=== PATIENT | male | born 1970 | race Two or more races ===

== ENCOUNTER 2017-09-04 22:25 | Inpatient (IN) | payer OTHER ==
[~2017-09-04] VITALS: Ht 172.7 cm; Wt 84.0 kg
[2017-09-04] MEDS ORDERED: ONDANSETRON ODT 4 MG PO ONE (23:00)
[2017-09-04] MEDS ORDERED: MECLIZINE CHEWABLE 25 MG TAB PO ONE (23:00)
[2017-09-04] MEDS ORDERED: MECLIZINE CHEWABLE 25 MG TAB ONE (23:05)
[2017-09-04] MEDS ORDERED: ONDANSETRON ODT 8 MG ONE (23:06)
[2017-09-04 23:32] LABS: ALANINE AMINOTRANSFERASE 17 U/L (12-78); ALBUMIN 3.3 g/dL (3.4-5.0); ANION GAP 10 mmol/L (5-15); CALCIUM 8.5 mg/dL (8.5-10.1); CHLORIDE 109 mmol/L (98-107); CREATININE 0.84 mg/dL (0.7-1.3)
[2017-09-04 23:34] LABS: ALKALINE PHOSPHATASE 72 U/L (45-117); BILIRUBIN,TOTAL 0.3 mg/dL (0.2-1.0); TOTAL PROTEIN 6.4 g/dL (6.4-8.2)
[2017-09-04 23:35] LABS: MEAN CORPUSCULAR HGB CONC 31.6 g/dL (33.2-36.2); MEAN CORPUSCULAR VOLUME 79.2 fL (81-97); MEAN PLATELET VOLUME 8.3 fL (7.4-10.4); PLATELET COUNT 405 x10^3/uL (130-400); RED BLOOD COUNT 2.12 x10^6/uL (4.38-5.82); RED CELL DISTRIBUTION WIDTH 20.1 % (9.4-14.8)
[2017-09-04 23:43] LABS: MD YES
[2017-09-04 23:56] LABS: ANISOCYTOSIS 2+; BASOS#(MANUAL) 0.09 x10^3/uL (0-0.1); BASOS% (MANUAL) 1 % (0-1); EOS#(MANUAL) 0.09 x10^3/uL (0.0-0.4); EOS% (MANUAL) 1 % (1-7); HYPOCHROMIA 1+; LYMPH#(MANUAL) 1.75 x10^3/uL (1-3.4); LYMPHS% (MANUAL) 19 % (22-44); MICROCYTOSIS 1+; MONOS#(MANUAL) 0.09 x10^3/uL (0.3-2.7); MONOS% (MANUAL) 1 % (2-9); POLYCHROMASIA 1+; SEG#(MANUAL) 7.18 x10^3/uL (1.8-6.8); SEGS% (MANUAL) 78 % (42-75)
[2017-09-04 23:57] LABS: OVALOCYTES 1+
[2017-09-04 23:59] LABS: SCHISTOCYTES 1+; TARGET CELLS 1+
[2017-09-05] VITALS (14 sets, daily range): BP systolic 96–135; BP diastolic 46–80
[2017-09-05] MEDS ORDERED: SODIUM CHLORIDE 0.9% 1,000ML IVBOLUS ONE
[2017-09-05] MEDS ORDERED: SODIUM CHLORIDE FLUSH 10ML SYR IVF ONE
[2017-09-05 00:04] LABS: <PLATELET ESTIMATE> ADEQUATE; LARGE PLATELETS 1+
[2017-09-05 00:10] LABS: INTERNATIONAL NORMALIZED RATIO 1.07 (0.93-1.1); PROTHROMBIN TIME 11.1 Seconds (9.6-11.5)
[2017-09-05] MEDS ORDERED: morphine SULFATE 10 MG/ML, 1ML IVPush PRN (00:30)
[2017-09-05] MEDS ORDERED: ONDANSETRON 2MG/ML, 2ML IVPush PRN (00:30)
[2017-09-05] MEDS ORDERED: hydrALAzine 20 MG/ML, 1ML IVPush PRN (00:30)
[2017-09-05] MEDS ORDERED: OXYcodone IR 5MG TABLET PO PRN (00:30)
[2017-09-05] MEDS ORDERED: PROMETHAZINE 25 MG/ML, 1ML IM PRN (00:30)
[2017-09-05] MEDS ORDERED: ONDANSETRON ODT 4 MG PO PRN (00:30)
[2017-09-05] MEDS ORDERED: BISACODYL 10 MG SUPP PR PRN (00:30)
[2017-09-05] MEDS ORDERED: DOCUSATE 100 MG CAPSULE PO PRN (00:30)
[2017-09-05] MEDS ORDERED: POLYETHYLENE GLYCOL 17 GM PACKET PO PRN (00:30)
[2017-09-05] MEDS ORDERED: PANTOPRAZOLE 80 MG in SODIUM CHLORIDE 0.9% 50 ML IV ONE (01:00)
[2017-09-05 01:08] LABS: FREE T4 (FREE THYROXINE) 1.1 ng/dL (0.76-1.46); THYROID STIMULATING HORMONE 0.871 mIU/L (0.358-3.740)
[2017-09-05] MEDS ORDERED: ACETAMINOPHEN 325 MG TABLET ONE (01:10)
[2017-09-05] MEDS ORDERED: ACETAMINOPHEN 325 MG TABLET PO ONE (01:30)
[2017-09-05] MEDS: SODIUM CHLORIDE 0.9% 1,000 ML IV SCH ×2 (01:56→11:31)
[2017-09-05] MEDS: PANTOPRAZOLE 80 MG in SODIUM CHLORIDE 0.9% 100 ML IV SCH ×2 (03:13→12:02)
[2017-09-05 03:14] LABS: MICROSCOPIC NOT IND
[2017-09-05 03:17] LABS: CULTURE INDICATED? NO
[2017-09-05 07:31] LABS: HEMOGRAM NOTE RECHECKED
[2017-09-05] MEDS ORDERED: FENTANYL PF 100 MCG/2ML ONE (14:06)
[2017-09-05] MEDS ORDERED: MIDAZOLAM 1 MG/ML, 5ML ONE (14:06)
[2017-09-05] MEDS: OMEPRAZOLE 20 MG CAPSULE.DR PO SCH (17:03)
[2017-09-06 01:21] VITALS: BP 106/68
[2017-09-06 05:14] LABS: BASOPHILS # (AUTO) 0.08 x10^3/uL (0-0.1); BASOPHILS % (AUTO) 1 % (0-1); EOSINOPHILS % (AUTO) 2 % (1-7); LYMPHOCYTES # (AUTO) 1.44 x10^3/uL (1-3.4); LYMPHOCYTES % (AUTO) 23 % (22-44); MD NO; MEAN CORPUSCULAR HEMOGLOBIN 26.8 pg (27.5-34.5); MEAN CORPUSCULAR HGB CONC 33.1 g/dL (33.2-36.2); MEAN CORPUSCULAR VOLUME 80.9 fL (81-97); MEAN PLATELET VOLUME 8.7 fL (7.4-10.4); MONOCYTES # (AUTO) 0.38 x10^3/uL (0.2-0.8); MONOCYTES % (AUTO) 6 % (2-9); NEUTROPHILS # (AUTO) 4.21 x10^3/uL (1.8-6.8); NEUTROPHILS % (AUTO) 68 % (42-75); PLATELET COUNT 257 x10^3/uL (130-400); RED BLOOD COUNT 2.75 x10^6/uL (4.38-5.82); RED CELL DISTRIBUTION WIDTH 18.3 % (9.4-14.8)
[2017-09-06 05:21] LABS: CHLORIDE 110 mmol/L (98-107)
[2017-09-06 05:28] LABS: ALANINE AMINOTRANSFERASE 16 U/L (12-78); ALBUMIN 2.9 g/dL (3.4-5.0); ALKALINE PHOSPHATASE 63 U/L (45-117); ANION GAP 7 mmol/L (5-15); BILIRUBIN,TOTAL 0.6 mg/dL (0.2-1.0); CALCIUM 7.6 mg/dL (8.5-10.1); CHOL/HDL RATIO 3.5; CHOLESTEROL, TOTAL 116 mg/dL (140-239); CREATININE 0.77 mg/dL (0.7-1.3); HDL CHOL % 28 % (26-37); HDL CHOLESTEROL (DIRECT) 33 mg/dL (40-60); LDL CHOLESTEROL,CALCULATED 56 mg/dL (54-169); LDL/HDL RATIO 1.7 (0.5-3.0); TOTAL PROTEIN 5.7 g/dL (6.4-8.2); TRIGLYCERIDES 133 mg/dL (50-200); VLDL CHOLESTEROL 27 mg/dL (0-25)
[2017-09-06 07:41] VITALS: BP 108/71
[2017-09-06] MEDS: OMEPRAZOLE 20 MG CAPSULE.DR PO SCH (07:57)
[2017-09-06] MEDS ORDERED: OMEP-110 PO (11:20)
[2017-09-06 12:27] VITALS: BP 106/68
== END 2017-09-06 13:50 | disposition home or self-care (01) | DRG 378 ==
LOC: ED 23:56 → EDIP 09-05 00:13 → 4WST 09-05 02:03
PROVIDERS: ADMIT Internal Medicine; ATTEND Internal Medicine
PROC: 0DB68ZX Excision of Stomach, Via Natural or Artificial Opening Endoscopic, Diagnostic (ICD-10-PCS; 2017-09-05)
PROC: 30233N1 Transfusion of Nonautologous Red Blood Cells into Peripheral Vein, Percutaneous Approach (ICD-10-PCS; principal; 2017-09-05 14:00)
DX: K26.4 Chronic or unspecified duodenal ulcer with hemorrhage (principal); D62 Acute posthemorrhagic anemia; D47.3 Essential (hemorrhagic) thrombocythemia; F17.210 Nicotine dependence, cigarettes, uncomplicated
CPT/HCPCS: 36415; 36430; 70450; 80053; 80061; 81003; 82728; 83036; 83540; 83550; 83735; 84439; 84443; 84466; 85014; 85018; 85025; 85610; 85730; 86850; 86900; 86923; 88305; 93005; J2250; J2550; J3010; Q0162; C9113; J7030; P9016